=== PATIENT | female | born 1950 | race Caucasian/White ===

== ENCOUNTER → 2017-07-27 | Outpatient (CLI) | payer BC | LOC: MC.RAD 07-07 14:40 | DX: Z12.31 Encounter for screening mammogram for malignant neoplasm of breast (principal); R92.0 Mammographic microcalcification found on diagnostic imaging of breast ==

== ENCOUNTER → 2017-08-06 | Outpatient (CLI) | payer BC | LOC: MC.RAD 10:00 | DX: R92.0 Mammographic microcalcification found on diagnostic imaging of breast (principal) ==

== ENCOUNTER → 2017-08-26 | Outpatient (CLI) | payer BC | LOC: MC.RAD 09:47 | DX: R92.0 Mammographic microcalcification found on diagnostic imaging of breast (principal) ==

== ENCOUNTER → 2018-08-24 | Outpatient (CLI) | payer MEDICARE, OTHER | LOC: MC.RAD 11:35 | DX: Z12.31 Encounter for screening mammogram for malignant neoplasm of breast (principal); Z98.82 Breast implant status ==

== ENCOUNTER 2019-04-08 13:44 | Outpatient (CLI) | payer MEDICARE, OTHER ==
[~2019-04-08] VITALS: Ht 162.6 cm; Wt 57.0 kg
[2019-04-08 14:09] VITALS: BP 108/57; PULSE 56; TEMP 98.3
[2019-04-08] MEDS ORDERED: MIRALAX PA17 GM/Dose PO (14:14)
[2019-04-08] MEDS ORDERED: COLACE 100100 MG/CAP PO (14:16)
[2019-04-08] MEDS ORDERED: OSCAL 500 TAB500 MG PO (14:16)
[2019-04-08] MEDS ORDERED: MULTI VITAMINS1 TAB PO (14:21)
== END 2019-04-08 14:26 | disposition home or self-care (01) ==
LOC: EUO 13:44
DX: M81.0 Age-related osteoporosis without current pathological fracture (principal)
CPT/HCPCS: J0897

== ENCOUNTER → 2021-12-30 | Outpatient (CLI) | payer MEDICARE, OTHER ==
[~2021-12-30] MED LIST: COLACE 100100 MG/CAP PO; MIRALAX PA17 GM/Dose PO; MULTI VITAMINS1 TAB PO; OSCAL 500 TAB500 MG PO
== END ==
LOC: MC.RAD 14:28
DX: Z12.31 Encounter for screening mammogram for malignant neoplasm of breast (principal)

== ENCOUNTER → 2023-05-01 | Outpatient (CLI) | payer MEDICARE, OTHER | LOC: MC.RAD 02-19 11:00 | DX: Z12.31 Encounter for screening mammogram for malignant neoplasm of breast (principal) ==